=== PATIENT | female | born 1985 | race Caucasian/White ===

== ENCOUNTER → 2018-01-25 13:40 | Outpatient (CLI) | payer OTHER, SELFPAY ==
[2018-01-25 13:02] VITALS: BMI 24.0
[2018-01-25 15:33] LABS: HIV - WCH Non-Reactive (Nonreactive)
[2018-01-26 00:36] LABS: Chlamydia Trachomatis by PCR Negative (Negative); Neisserai gonorrhoeae by PCR Negative (Negative); Probe Check PASS; Sample Adequacy Control PASS; Specimen Processing Control PASS
[2018-01-27 20:06] LABS: HCV Quant. RNA PCR HCV Not Detected IU/mL (.)
[2018-01-28 02:02] LABS: Rapid Plasmin Reagin (RPR) NONREACTIVE (NONREACTIVE)
[2018-01-28 08:31] LABS: HEPATITIS B SURFACE AG Negative (Negative); HSV 2 IgG < 0.91 index (0.00-0.90)
[2018-01-31 15:38] LABS: HPV APTIMA, High Risk Negative (Negative)
== END ==
PROVIDERS: Nurse Practitioner Women's Health; Family Provider Family Medicine; PCP Family Medicine; Referring Provider Obstetrics & Gynecology; Visit Provider Obstetrics & Gynecology
DX: Z11.3 Encounter for screening for infections with a predominantly sexual mode of transmission (principal); Z12.4 Encounter for screening for malignant neoplasm of cervix
CPT/HCPCS: 36415; 86592; 86695; 86696; 86703; 87340; 87491; 87522; 87591; 87624; 88175; G0145